=== PATIENT | male | born 1995 | race Caucasian/White ===

== ENCOUNTER 2021-07-18 16:52 | Emergency (ER) | payer SELFPAY ==
[~2021-07-18] VITALS: Ht 182.9 cm; Wt 102.1 kg
[2021-07-18 17:05] VITALS: BP 137/81
--- NOTE | 2021-07-18 17:15 | NUR ---
US AT BEDSIDE
[2021-07-18] MEDS ORDERED: ACETAMINOPHEN ES 500 MG TABLET ONE (17:28)
[2021-07-18] MEDS ORDERED: ACETAMINOPHEN ES 500 MG TABLET PO ONE (17:30)
[2021-07-18 18:19] LABS: BILIRUBIN,URINE NEGATIVE (NEGATIVE); COLOR,URINE YELLOW (YELLOW); LEUKOCYTE ESTERASE ,URINE NEGATIVE (NEGATIVE); NITRITE, URINE NEGATIVE (NEGATIVE); PH,URINE 7.5 (5.0-8.0); PROTEIN,URINE NEGATIVE (NEGATIVE); UGLUCOSE NEGATIVE (NEGATIVE); UROBILINOGEN,URINE 0.2 EU/dL (0.2)
[2021-07-18] MEDS ORDERED: IBUPROFEN 600 MG TABLET PO ONE (18:30)
[2021-07-18] MEDS ORDERED: IBUPROFEN 600 MG TABLET ONE (18:30)
[2021-07-18] MEDS ORDERED: NAPR-1164 PO (19:28)
--- NOTE | 2021-07-18 19:38 | NUR ---
Patient discharged to home in stable condition. Rx and Written and verbal after care instructions given. Patient verbalizes understanding of instruction.
== END 2021-07-18 19:40 | disposition home or self-care (01) ==
LOC: ER 16:55
DX: M79.651 Pain in right thigh (principal); R59.1 Generalized enlarged lymph nodes; J45.909 Unspecified asthma, uncomplicated
CPT/HCPCS: 76882

== ENCOUNTER 2021-07-23 14:29 | Emergency (ER) | payer OTHER ==
[~2021-07-23] VITALS: Ht 182.9 cm; Wt 102.1 kg
[~2021-07-23 14:29] MED LIST: NAPR-1164 PO
[2021-07-23 14:47] VITALS: BP 120/78
--- NOTE | 2021-07-23 14:50 | NUR ---
PT CAME TO ER C/O REDNESS ON R LOWER LEG X 5 DAYS S/P LIFTING HEAVY WEIGHTS THAT SCRATCHED HIS LEGS. PT REPORTS I'M WONDERING IF IT GOT INFECTED." AAOX4, BREATHING EVEN AND UNLABORED, R LOER EXTREMITY REDNESS, NO ACTIVE BLEEDING
[2021-07-23] MEDS ORDERED: CEPHALEXIN MONOHYDRATE 500 MG CAPSULE PO ONE ×2 (15:00→15:14)
[2021-07-23] MEDS ORDERED: SULFAMETH/TRIMETH 800/160 MG 1 UDTAB TABLET PO ONE (15:00)
[2021-07-23] MEDS ORDERED: SULFAMETH/TRIMETH 800/160 MG 1 UDTAB TABLET ONE (15:14)
[2021-07-23] MEDS ORDERED: CEPH500C2 PO (15:46)
[2021-07-23] MEDS ORDERED: SULF1TAB48 PO (15:46)
--- NOTE | 2021-07-23 16:00 | NUR ---
Patient discharged to home in stable condition. Written and verbal after care instructions given. Patient verbalizes understanding of instruction.
== END 2021-07-23 17:26 | disposition home or self-care (01) ==
LOC: ER 14:32
DX: S80.811A Abrasion, right lower leg, initial encounter (principal); L03.115 Cellulitis of right lower limb; M79.89 Other specified soft tissue disorders; J45.909 Unspecified asthma, uncomplicated; Z79.899 Other long term (current) drug therapy; X58.XXXA Exposure to other specified factors, initial encounter; Y93.89 Activity, other specified; Y92.89 Other specified places as the place of occurrence of the external cause; Y99.8 Other external cause status
CPT/HCPCS: 93971-TC

== ENCOUNTER 2021-08-11 20:55 | Emergency (ER) | payer OTHER ==
[~2021-08-11] VITALS: Ht 182.9 cm; Wt 102.1 kg
[~2021-08-11 20:55] MED LIST changes: +CEPH500C2 PO; +SULF1TAB48 PO
--- NOTE | 2021-08-11 21:45 | NUR ---
BIBS FOR C/O RECURRENT R ALFRED WOUND. COMPLETED ATB DOSES LAST WEEK. PT A/OX4. TOLERATING R/A WELL WITH NO SOB. PT AMBULATORY WITH STEADY GAIT
[2021-08-11 21:54] VITALS: BP 141/86
--- NOTE | 2021-08-11 22:00 | NUR ---
PT SEEN BY DR. KRISS SMITH
[2021-08-11] MEDS ORDERED: CLIN300C12 PO (22:03)
--- NOTE | 2021-08-11 22:13 | NUR ---
Patient discharged to home in stable condition. RX Written and verbal after care instructions given. Patient verbalizes understanding of instruction. PT ambulatory with a steady gait
[2021-08-11] MEDS ORDERED: CLINDAMYCIN HCL 150 MG CAPSULE ONE (22:20)
[2021-08-11] MEDS ORDERED: CLINDAMYCIN HCL 150 MG CAPSULE PO ONE (22:30)
== END 2021-08-11 21:45 | disposition home or self-care (01) ==
LOC: ER 20:57
DX: L03.115 Cellulitis of right lower limb (principal); Z79.899 Other long term (current) drug therapy

== ENCOUNTER 2021-09-27 10:50 | Emergency (ER) | payer OTHER ==
[~2021-09-27] VITALS: Ht 182.9 cm; Wt 102.1 kg
[~2021-09-27 10:50] MED LIST changes: +CLIN300C12 PO
[2021-09-27 10:59] VITALS: BP 125/87
--- NOTE | 2021-09-27 10:59 | NUR ---
"Was here before for same thing Now have redness on Right Lower Leg again"
[2021-09-27] MEDS ORDERED: CLINDAMYCIN 900 MG/6 ML VIAL IM ONE (13:00)
[2021-09-27] MEDS ORDERED: CLINDAMYCIN PHOSPHATE IV 600 MG/4 ML VIAL ONE (13:55)
[2021-09-27] MEDS ORDERED: CLIN300C12 PO (13:56)
--- NOTE | 2021-09-27 14:10 | NUR ---
Patient discharged to home in stable condition. Written and verbal after care instructions given. Patient verbalizes understanding of instruction.
== END 2021-09-27 14:10 | disposition home or self-care (01) ==
LOC: ER 11:02
DX: L03.115 Cellulitis of right lower limb (principal); Z86.79 Personal history of other diseases of the circulatory system; Z79.1 Long term (current) use of non-steroidal anti-inflammatories (NSAID); Z79.899 Other long term (current) drug therapy

== ENCOUNTER 2022-09-22 06:53 | Emergency (ER) | payer OTHER ==
[~2022-09-22] VITALS: Ht 182.9 cm; Wt 106.6 kg
[2022-09-22 07:01] VITALS: BP 131/88
== END 2022-09-22 07:18 | disposition home or self-care (01) ==
LOC: ER 06:53
DX: J02.9 Acute pharyngitis, unspecified (principal); J45.909 Unspecified asthma, uncomplicated; Z79.899 Other long term (current) drug therapy